=== PATIENT | male | born 1975 | race American Indian/Alaskan Native ===

== ENCOUNTER 2017-06-03 10:50 | Day surgery (SDC) | payer OTHER ==
--- NOTE | 2017-06-03 11:48 | Anesthesia Day of Surgery ---
Anesthesia Day of Surgery - Day of Surgery Patient Examined: Yes Patient H&P Reviewed: Yes Patient is NPO: Yes
--- NOTE | 2017-06-03 11:48 | Anesthesia Consultation ---
Anesthesia Consult and Med Hx Date of service: 06/03/17 - Airway Anesthetic Teeth Evaluation: Good ROM Head & Neck: Adequate Mental/Hyoid Distance: Adequate Mallampati Class: Class II Intubation Access Assessment: Probably Good - Pulmonary Exam CTA: Yes - Cardiac Exam Cardiac Exam: RRR - Pre-Operative Health Status ASA Pre-Surgery Classification: ASA2 Proposed Anesthetic Plan: MAC - Cardiovascular System Hx Hypertension: Yes - Gastrointestinal Hx Gastroesophageal Reflux Disease: Yes
[2017-06-03] MEDS ORDERED: PEPCID IV ONE (11:54)
[2017-06-03] MEDS ORDERED: PEPCID IV NR (12:00)
[2017-06-03] MEDS ORDERED: NACL 0.9% 1000 ML 1,000 ML IV SCH (13:00)
[2017-06-03] MEDS ORDERED: DIPRIVAN 10 MG/ML IV ONE ×2 (14:04)
[2017-06-03] MEDS ORDERED: WATER FOR IRRIG STERILE IR ONE (14:39)
--- NOTE | 2017-06-03 14:55 | Operative Report ---
Operative Report Operative Report: Date of procedure: 06/03/2017 Procedure: Esophagogastroduodenoscopy with multiple mucosal biopsies. Attending physician: Pepito Serna MD Community Planning Technician: Pepito Serna MD Indication: Patient is a 41-year-old male who presented with a history of epigastric pain heartburn and indigestion and also onset of dysphagia. Upper endoscopy is done to evaluate patient so that treatment may be directed based the findings. Consent: Informed consent was obtained after advising the patient and family regarding nature of this procedure, its indications, potential benefits as well as possible complications including but not limited to bleeding perforation and adverse reaction to medication, infection as well as other cardiopulmonary complications. An informed written and verbal consent was then obtained after due opportunity was provided for questions and answers. Monitoring: Patient was monitored continuously with pulse oximetry and electrocardiographic recordings as well as blood pressure recordings. Vital signs remained stable throughout this procedure with no untoward events. Preoperative assessment: Patient was assessed immediately prior to this procedure for capacity to tolerate monitored anesthesia care and moderate sedation as well as general anesthesia. Patient's ASA classification is 2, Mallampati class is 2, Hyomental distance is 3. Instrument: [employer] video endoscope Medications: Propofol given intravenously in divided doses. For details please refer to anesthesia records. Description of procedure: Patient was placed in the left lateral decubitus position after achieving sedation, the endoscope was introduced into the esophagus under direct vision. It was then advanced beyond the esophagus into the stomach and then beyond the stomach into the duodenum and to the second portion of the duodenum. It was subsequently withdrawn with careful inspection of all mucosal surfaces with the following findings. Findings: Patient had mild erosive esophagitis involving the distal esophagus. There was a small sliding hiatal hernia seen on entry into the stomach. There were multiple gastric erosions seen in the gastric antrum and body. There was some retained gastric contents that was predominantly liquid which was suctioned off. Biopsies of the gastric antrum were obtained. Duodenum was normal to second portion. There was no luminal constriction seen in the esophagus. Impression: Erosive esophagitis. Hiatal hernia. Mucosal changes suggestive of gastritis. Plan: High-dose proton pump inhibitors. Maintain antireflux measures. Follow pathology report and direct additional treatment based on the pathology report.
--- NOTE | 2017-06-03 14:56 | Discharge Summary ---
Short Stay Discharge Plan Activity: advance as tolerated Weight Bearing Status: Weight Bear as Tolerated Diet: regular Additional Instructions: Post Sedation D/C Instructions When you return home you may resume your regular diet unless otherwise directed. -Go directly home from the hospital and rest quietly. You may resume normal activities tomorrow. -Do NOT drive, return to work, operate any machinery or make any important personal or business decisions today. -Do NOT drink any alcohol or take nerve or sleeping drugs. They add to the effects of the medicine still present in your body. Follow up with Dr. Serna to obtain pathology results and treatment plan. Follow up with: VI SERNA MD [Primary Care Provider] - 7 Days
[2017-06-03 15:15] VITALS: BP 130/92
--- NOTE | 2017-06-03 16:25 | Post Anesthesia Evaluation ---
- Post Anesthesia Evaluation Patient Participated: Yes Airway Patent: Yes Stable Respiratory Function: Yes Nausea/Vomiting: No Temp > 96.8F: Yes Pain Manageable: Yes Adequeate Hydration: Yes Anesthesia Complications: No Block Receding Appropriately: Not Applicable Patient on Ventilator: No
== END 2017-06-03 10:51 | disposition home or self-care (01) ==
LOC: GIO 10:50
PROVIDERS: ATTEND Internal Medicine Gastroenterology
DX: K29.50 Unspecified chronic gastritis without bleeding (principal); B96.81 Helicobacter pylori [H. pylori] as the cause of diseases classified elsewhere; K21.0 Gastro-esophageal reflux disease with esophagitis; K44.9 Diaphragmatic hernia without obstruction or gangrene; I10 Essential (primary) hypertension; Z98.890 Other specified postprocedural states; Z79.899 Other long term (current) drug therapy
CPT/HCPCS: 43239; 88305; 88342; 96374; J2704; J7030